=== PATIENT | female | born 1960 | race Caucasian/White ===

== ENCOUNTER 2020-01-09 06:00 | Outpatient (RCR) | payer BC, SELFPAY | END 2020-01-14 23:59 | disposition home or self-care (01) | LOC: MPT 06:00 | PROVIDERS: PCP Family Medicine; Referring Provider Family Medicine; Visit Provider Family Medicine | DX: G57.02 Lesion of sciatic nerve, left lower limb (principal) | CPT/HCPCS: 97110; 97140; 97161; 97530 ==

== ENCOUNTER 2020-01-15 06:00 | Outpatient (RCR) | payer BC, SELFPAY | END 2020-02-14 23:59 | disposition home or self-care (01) | LOC: MPT 06:00 | PROVIDERS: PCP Family Medicine; Referring Provider Family Medicine; Visit Provider Family Medicine | DX: G57.02 Lesion of sciatic nerve, left lower limb (principal) | CPT/HCPCS: 97110; 97140; 97530 ==

== ENCOUNTER 2020-02-15 06:00 | Outpatient (RCR) | payer BC, SELFPAY | END 2020-03-16 23:59 | disposition home or self-care (01) | LOC: MPT 06:00 | PROVIDERS: PCP Family Medicine; Referring Provider Family Medicine; Visit Provider Family Medicine | DX: G57.02 Lesion of sciatic nerve, left lower limb (principal) | CPT/HCPCS: 97110; 97140; 97530 ==

== ENCOUNTER 2020-10-12 12:02 | Outpatient (RCR) | payer OTHER, SELFPAY | END 2020-10-14 23:59 | disposition home or self-care (01) | LOC: MPT 12:02 | PROVIDERS: PCP Family Medicine; Referring Provider Orthopaedic Surgery Pediatric Orthopaedic Surgery; Visit Provider Orthopaedic Surgery Pediatric Orthopaedic Surgery | DX: Z47.1 Aftercare following joint replacement surgery (principal); Z96.642 Presence of left artificial hip joint | CPT/HCPCS: 97110; 97140; 97161 ==

== ENCOUNTER 2020-10-15 06:00 | Outpatient (RCR) | payer OTHER, SELFPAY | END 2020-11-13 23:59 | disposition home or self-care (01) | LOC: MPT 06:00 | PROVIDERS: PCP Family Medicine; Referring Provider Orthopaedic Surgery Pediatric Orthopaedic Surgery; Visit Provider Orthopaedic Surgery Pediatric Orthopaedic Surgery | DX: Z47.1 Aftercare following joint replacement surgery (principal); Z96.642 Presence of left artificial hip joint | CPT/HCPCS: 97110; 97140 ==